=== PATIENT | female | born 1960 | race Caucasian/White ===

== ENCOUNTER 2022-01-15 14:49 | Emergency (ER) | payer BC, SELFPAY ==
[2022-01-15 15:00] VITALS: BP 122/71; PULSE 66; RESP 16; TEMP 36.3; O2SAT 100
[2022-01-15 15:02] VITALS: BP 122/71; PULSE 66; RESP 16; TEMP 36.3; O2SAT 100
--- NOTE | 2022-01-15 15:03 | ED.ANIMALBIT ---
HPI - Animal Bite General Chief Complaint: Extremity Injury, Lower Stated Complaint: Left lower leg dog bite Time Seen by Provider: 01/15/22 15:20 Source: patient Mode of arrival: ambulatory Limitations: no limitations History of Present Illness HPI narrative: Ms. Osborn is a 61-year-old female patient presenting to the clinic today with complaints of a dog bite to the right lower leg. She reports that she was out walking her dog and at home she was walking by had a [place] that bolted out the door and started to attack her dog and she tried to break up the fight and was bitten. She has a approximately 2 cm laceration to the back of her right lower leg and a puncture wound to the anterior lateral leg. Bleeding is controlled. Tetanus is unknown Related Data Home Medications Medication Instructions Recorded Confirmed estradiol 1 mg tablet (Estrace) 0.5 mg PO DAILY 09/16/21 01/15/22 Allergies Allergy/AdvReac Type Severity Reaction Status Date / Time No Known Allergies Allergy Verified 01/15/22 15:01 Review of Systems Review of Systems: Pertinent positives per HPI. Patient denies any fever, chills, rash, headache, visual changes, dizziness, cough, runny nose, sore throat, shortness of breath, chest pain, palpitations, nausea, vomiting, diarrhea, constipation, abdominal pain, or any urinary issues. [facility] Past Medical History Medical History GERD (gastroesophageal reflux disease) Post-menopausal Surgical History Surgical History H/O breast augmentation (~2010) H/O: hysterectomy (~2000) Family History Family History Mother Hypertension Other Family history of malignant neoplasm of ovary Social History Social History Smoking status: Never smoker Alcohol intake: never Substance use: never Substance use type: does not use Additional occupation/education comments: Transmission [employer] Gender identity (if verbalized by the patient): Female Comments At the time of my signature, I reviewed and agree with the nursing past medical, surgical, social, and family history. There is no relevant family history pertinent to the patient complaint. Exam Narrative: General: Well-developed, well nourished, in no apparent distress Head: Normocephalic, atraumatic. Cardio: Regular rate and rhythm, s1 and s2 normal, no murmur appreciated. Resp: Clear to auscultation bilaterally, no rhonchi, rales, wheezing or rubs. Integumentary: [place], warm, and dry, puncture wound to the right lateral lower anterior leg and a gaping 2 cm laceration to the posterior lower leg. Moderate amount of bruising noted under the skin with tenderness to palpation Course Course Emergency Course: Portions of this record may have been created with voice recognition software. Level of Care: Express Care Visit Vital Signs Vital signs: Vital Signs Temperature 36.3 C L 01/15/22 15:00 Pulse Rate 66 01/15/22 15:00 Respiratory Rate 16 01/15/22 15:00 Blood Pressure 122/71 01/15/22 15:00 Pulse Oximetry 100 01/15/22 15:00 Oxygen Delivery Room Air 01/15/22 15:00 Temperature 36.3 C L 01/15/22 15:02 Pulse Rate 66 01/15/22 15:02 Respiratory Rate 16 01/15/22 15:02 Blood Pressure 122/71 01/15/22 15:02 Pulse Oximetry 100 01/15/22 15:02 Oxygen Delivery Room Air 01/15/22 15:02 Vital signs reviewed Procedures Laceration Laceration 1: Date: 01/15/22 Site: lower extremity (Right leg) Side (If applicable): right Size (cm): 2 Description: linear Depth: simple, single layer Local Anesthetic: lidocaine 1% Amount of anesthesia used (mL): 2 Pre-repair: wound explored and irrigated ====== Skin Level ======
[2022-01-15] MEDS: TETANUS,DIPHTHERIA,AC PERTUSSIS ADULT (0.5 ML) BOOSTRIX IM (15:06)
== END 2022-01-15 15:33 | disposition home or self-care (01) ==
PROVIDERS: Emergency Provider Nurse Practitioner Family; PCP Family Medicine
DX: S81.811A Laceration without foreign body, right lower leg, initial encounter (principal); S81.831A Puncture wound without foreign body, right lower leg, initial encounter; W54.0XXA Bitten by dog, initial encounter; Z23 Encounter for immunization; K21.9 Gastro-esophageal reflux disease without esophagitis
CPT/HCPCS: 12001; 90471; 90715; 99213; G0463

== ENCOUNTER 2022-02-17 07:56 | Outpatient (RCR) | payer BC, SELFPAY | END 2022-03-11 12:18 | disposition home or self-care (01) | LOC: ANHWOC 07:56 | PROVIDERS: PCP Family Medicine; Visit Provider Nurse Practitioner | DX: S81.839D Puncture wound without foreign body, unspecified lower leg, subsequent encounter (principal) | CPT/HCPCS: 99202; 99212; A9270; G0463 ==